=== PATIENT | female | born 1985 | race African-American/Black ===

== ENCOUNTER 2020-02-26 12:45 | Emergency (ER) | payer MEDICAID, SELFPAY ==
[2020-02-26 12:53] VITALS: BP 177/80; PULSE 95; RESP 16; TEMP 36.6; O2SAT 99; BMI 36.0
--- NOTE | 2020-02-26 13:07 | XR_ITS ---
EXAMINATION: XR KNEE, RIGHT CLINICAL INFORMATION: Fall. COMPARISON: None TECHNIQUE: AP, bilateral oblique, and lateral views of the right knee. FINDINGS: Bones and soft tissues are normal. No fracture or joint effusion. Alignment is anatomic. Joint spaces are well maintained. No abnormal soft tissue calcification. XR/XR knee RT 4V IMPRESSION: Normal right knee.
--- NOTE | 2020-02-26 13:07 | CT_ITS ---
EXAMINATION: CT HEAD WITHOUT CONTRAST CLINICAL INFORMATION: Fall, hit head. COMPARISON: None TECHNIQUE: Contiguous axial imaging was performed from the skull base to vertex without intravenous administration of contrast. This CT examination was performed using dose optimization techniques as appropriate, variously including the following: *Automated exposure control *Adjustment of mA and/or kV according to patient size (this includes techniques or standardized protocols for targeted exams where dose is matched to indication/reason for exam; i.e. extremities or head) *Use of iterative reconstruction technique DLP: 626 mGy-cm FINDINGS: There is no evidence of acute intracranial hemorrhage or territorial infarction. No abnormal mass effect or midline shift is seen. [place] to white matter differentiation is well preserved. No extra-axial fluid collections are identified. The ventricles are normal in size. There is no abnormal attenuation within the brain parenchyma. The osseous structures and soft tissues are normal. The mastoid air cells and visualized portions of the paranasal sinuses are well aerated. CT/CT head/brain wo con IMPRESSION: No acute intracranial process seen.
--- NOTE | 2020-02-26 13:09 | ED.FALL ---
HPI - Fall General Chief Complaint: Fall Stated Complaint: Fall - face & knee pain Time Seen by Provider: 02/26/20 12:57 Source: patient Mode of arrival: ambulatory History of Present Illness HPI Narrative: 34-year-old female with no significant past medical history presenting to ED complaining of headache, neck pain, back pain, and right knee pain s/p slip and fall in shower last night. Reports stepped in wet porcelain shower and slipped falling on right side, reports hitting head/neck. Denies symptoms prior to fall. Denies LOC, or taking anticoagulation, has been ambulatory since the incident. Reports intermittent dizziness. Denies nausea/vomiting, vision changes at present, numbness/tingling, incontinence/retention MD complaint: fall Related Data Previous Rx's Medication Instructions Recorded acetaminophen [Tylenol Extra 500 mg PO Q6H PRN #20 tab 02/26/20 Strength] cyclobenzaprine 5 mg PO Q8H PRN 5 Days #14 tab 02/26/20 lidocaine [Lidoderm] 1 patch TOPICAL DAILY PRN #30 ea 02/26/20 MDD remove after 12 hours Allergies Allergy/AdvReac Type Severity Reaction Status Date / Time ibuprofen Allergy Mild Hives Verified 02/26/20 13:07 adhesive tape AdvReac Mild peels Verified 02/26/20 13:07 skin/dermaitits Review of Systems Review of Systems: Constitutional: No Weight loss, No Fever, No Chills Cardiovascular: No Chest Pain, No SOB Respiratory: No Cough, No Sputum, No Wheezing Gastrointestinal: No Nausea, No Vomiting, No Abdominal pain Genitourinary: No Urinary Incontinence, No Urgency/retention, No Flank Pain Musculoskeletal: + neck and back pain pain, No Myalgias, No Joint Swelling Skin: No Skin Lesions, No rash Neuro: No Weakness, No Numbness, No Paresthesias, + headache, +intemrittent dizziness Yes all other systems are reviewed and are negative [facility] Past Medical History Attestation statement: The following information was validated with the patient. Medical History (Updated 02/26/20 @ 14:05 by HARMEET Woodruff) delivery delivered Social History Social History Advance Directives: No Advance Directives Information Provided: No Physical Exam Vital Signs: Vital Signs: Last Vital Signs Temp 98 F 02/26/20 12:53 Pulse 95 02/26/20 12:53 Resp 16 12/12/20 12:53 BP 177/80 H 02/26/20 12:53 Pulse Ox 99 02/26/20 12:53 Body Mass Index 36.0 Const: General: cooperative and healthy appearing Orientation/consciousness: patient oriented x3 Limitations: no limitations HENMT: Head: Yes normal to inspection Ears: hearing grossly normal bilaterally General nose exam: Normal external nose present Face and sinus: Yes normal facial exam Eyes: General: appearance normal, both eyes and all related structures Pupils: Equal, round and reactive pupils present EOM: EOMs intact bilaterally Neck: Other: No midline cervical spinous tenderness. + bilateral paraspinal/MSK tenderness. No step-offs Neck: Yes normal visual inspection Resp: Effort & Inspection: normal respiratory effort Cardio: Rate: regular rate GI: Inspection: Yes normal to inspection Palpation (GI): Soft to palpation, nontender, no guarding and not rigid Back/Spine/Pelvis: Other: No midline thoracic/lumbar spinous tenderness. + bilateral MSK lumbar TTP Skin: Rashes: no rashes Wounds: no wounds Neuro: Other: No saddle anesthesia General: patient oriented x3, tone normal, moves all extremities and no focal motor deficits Cranial nerves: Yes Equal, round and reactive pupils present Cognition (Neuro): normal cognition Gait exam (Neuro): Normal gait present Motor exam (neuro): 5/5 motor strength present throughout Extrem: Other: + right knee with mild lateral swelling and tenderness to palpation. Decreased ROM secondary to pain. Any intact. Course Course Course Narrative: -head CT/knee x-ray without acute findings - worrisome signs and symptoms and strict return precautions discussed with patient. She verbalized understanding feel safe for discharge home MDM - Fall MDM Narrative Medical decision making narrative: Likely MSK pain. No midline spinous tenderness or red flag symptoms. No saddle anesthesia. Rule out ICH/fracture Discharge Plan Discharge Clinical Impression: Head injury Qualifiers: Encounter type: initial encounter Qualified Code(s): S09.90XA - Unspecified injury of head, initial encounter Knee pain Qualifiers: Chronicity: acute Laterality: left Qualified Code(s): M25.562 - Pain in left knee Patient Disposition: Home, Self-Care Instructions: Musculoskeletal Pain (ED) Additional Instructions: Your imaging studies were unremarkable today in the ED Your pain is likely musculoskeletal Flexeril is a muscle relaxer, take at night as it makes you drowsy, do not drive, drink alcohol, or operate machinery while taking it Lidoderm patches are numbing patches, apply to painful area In addition take Tylenol at home If symptoms persist or worsen, pain becomes unbearable, you developed urinary retention or incontinence, or weakness return to the ED Prescriptions: New acetaminophen [Tylenol Extra Strength] 500 mg tablet 500 mg PO Q6H PRN (Reason: pain or fever) Qty: 20 RF: 0 lidocaine [Lidoderm] 5 % adhesive patch,medicated 1 patch topical DAILY MDD remove after 12 hours PRN (Reason: pain) Qty: 30 RF: 0 cyclobenzaprine 5 mg tablet 5 mg PO Q8H PRN (Reason: pain (scale score 7-10)) 5 Days Qty: 14 RF: 0
[2020-02-26] MEDS: Cyclobenzaprine HCl 5 MG TABLET PO (13:29)
[2020-02-26] MEDS: Lidocaine 4 % Patch ADH..PATCH 1 PATCH TRANSDERMA (13:29)
== END 2020-02-26 14:14 | disposition home or self-care (01) ==
PROVIDERS: Emergency Provider Emergency Medicine
DX: S09.90XA Unspecified injury of head, initial encounter (principal); W18.2XXA Fall in (into) shower or empty bathtub, initial encounter; G89.11 Acute pain due to trauma; M25.562 Pain in left knee; Y93.E1 Activity, personal bathing and showering; Y92.012 Bathroom of single-family (private) house as the place of occurrence of the external cause; Y99.9 Unspecified external cause status
CPT/HCPCS: 70450; 73564; 99283; 99284